=== PATIENT | female | born 1955 | race Caucasian/White ===

== ENCOUNTER 2017-07-20 10:32 | Outpatient (CLI) | payer BC ==
--- NOTE | 2017-07-20 13:48 | MRI ---
MRI LUMBAR SPINE NONCONTRAST: DATE: 07/20/17 HISTORY: 62-year-old female with M54.41 acute right-sided low back pain with right sciatica. COMPARISON: No prior lumbar spine MRIs or CTs. FINDINGS: For the purposes of this report, the last lumbar-type vertebra will be designated as L5, and the leve l with bilateral hypoplastic ribs will be designated as T12. At the left posterolateral upper-mid pole cortex, there is a 1.2 x 0.9 cm T2 hyperintense lesion (axi al image 4 of 43, series 6). Otherwise, no major abnormality of the retroperitoneal or perivertebral spaces. The vertebral body heights are maintained. No major bone marrow signal abnormality. T12-L1: Disc space maintained. Tiny right paracentral, shallow disc protrusion. No central stenosis and no ne ural foraminal stenosis. Conus medullaris terminates at this level. L1-2: Moderate disc space narrowing. Modic Type II end plate marrow changes. Slight degenerative retrolisth esis of L1 on L2. Mild diffuse disc bulge. No central stenosis, and no high grade neural foraminal st enosis. L2-3: Mild to moderate disc space narrowing. Diffuse disc bulge. Left lateral and far lateral component of the disc bulge is asymmetrically larger than the right. Minimal left neural foraminal stenosis. No si gnificant right neural foraminal stenosis. No central stenosis. There are mild to moderate degenerati ve facet changes on the right, and moderate degenerative facet changes on the left. L3-4: Mild to moderate disc space narrowing. Diffuse disc bulge, mild to moderate ligamentum flavum thicken ing, and mild bilateral degenerative facet hypertrophy, all together result in a mild to moderate deg ree of central spinal canal stenosis, and moderate degree of thecal sac stenosis when the posterior e pidural fat pad is taken into consideration. In addition to the diffuse disc bulge, there is a modera te sized central, right paracentral, and right lateral disc extrusion with inferior migration of the extruded disc material down to the pedicle level of L4, posteriorly displacing the right L4 nerve jeff t against the right facet/ligamentum flavum complex. There is moderate bilateral neural foraminal julia nosis. L4-5: Disc space maintained. Minimal disc bulge. Mild right neural foraminal stenosis. Mild to moderate lef t neural foraminal stenosis. Moderately thickened ligamentum flavum. Moderate to severe bilateral deg enerative facet changes. All of these factors result in moderate central spinal canal stenosis. L5-S1: Disc space maintained. No central or neural foraminal stenosis. Moderate bilateral degenerative facet changes, right greater than left. Tiny central disc protrusion. IMPRESSION: 1. Right paracentral extruded disc herniation at L3-4 with inferior migration of extruded disc mater ial, impinging on the right L4 nerve root. 2. Moderate central spinal canal stenosis at L3-4 and L4-5. 3. Lumbar spondylosis, consisting of facet osteoarthrosis (worst at L4-5) and degenerative disc dise ase at L1-2, L2-3, and L3-4. 4. A 1.2 cm T2 hyperintense left renal posterior cortical lesion. Recommend renal ultrasound to dist inguish benign cyst from neoplasm. DIMITRY Chau POS: [facility]
== END 2017-07-20 10:33 | disposition home or self-care (01) ==
LOC: MRI 10:32
PROVIDERS: ATTEND Anesthesiology Pain Medicine
DX: M54.41 Lumbago with sciatica, right side (principal); M47.896 Other spondylosis, lumbar region; M48.061 Spinal stenosis, lumbar region without neurogenic claudication; M51.26 Other intervertebral disc displacement, lumbar region
CPT/HCPCS: 72148

== ENCOUNTER 2017-09-29 10:35 | Day surgery (SDC) | payer BC ==
[2017-09-28 13:46] VITALS: BMI 36.5
--- NOTE | 2017-09-29 12:28 | RAD ---
4 VIEWS LUMBAR SPINE: Date: 09/29/17 HISTORY: Preoperative exam. FINDINGS: Calcification of the T12-L1 disc space. Mild loss of disc space height at L1-L2 and L2-L3. There are five lumbar-type vertebral bodies. Degenerative changes in the posterior elements at L5-S1. In the ne utral position, there is 2.5 mm retrolisthesis of L2 upon L3 and 3.9 mm retrolisthesis of L3 upon L4. On flexion, there is 3.2 mm retrolisthesis of L2 upon L3 and 2.8 mm retrolisthesis of L3 upon L4. Up on extension, there is 3.3 mm retrolisthesis of L2 upon L3 and 4.4 mm retrolisthesis of L3 upon L4. IMPRESSION: Degenerative changes of the lumbar spine as above. Spondylolisthesis as above. POS: [facility]
--- NOTE | 2017-09-29 15:29 | MRI ---
MRI THORACIC SPINE WITHOUT CONTRAST: Date: 09/29/17 HISTORY: Patient fell a year ago. Pain. Surgery. COMPARISON: None. TECHNIQUE: Thoracic spine MRI is performed without intravenous Gadolinium administration. Multisequential, multi planar imaging is performed. FINDINGS: Appropriate T1 marrow signal intensity of the thoracic vertebra. Thoracic spine vertebral body height is maintained. No fracture. No significant STIR hyperintensity to suggest edema or ligamentous injur y. The visualized mediastinal structures are unremarkable. There appear to be chronic changes in the dep endent portion of both lungs. Better interrogation with chest CT is recommended. The thoracic cord has an overall normal size and signal intensity. No evidence of cord expansion. No evidence of cord malacia. Conus medullaris terminates at the mid T12 level. T1-T2: Small left paracentral disc. No high grade central canal stenosis. T2-T3: No significant central canal stenosis. T3-T4: Central/right paracentral disc bulge. Mild flattening of right hemicord. Mild central canal stenosis. T4-T5 through T7-T8: No significant central canal stenosis. T8-T9: Central/left paracentral disc bulge. Mild central canal stenosis. Mild deformity of the left hemicord . T9-T10: Broad based disc bulge with moderate central canal stenosis. T10-T11 and T11-T12: No significant central canal stenosis. No significant posterior disc abnormality. IMPRESSION: 1. Degenerative changes of the thoracic spine as above. 2. Presumed chronic change in the lung parenchyma. Better interrogation with CT. 3. No evidence of significant thoracic spine fracture. CODE T. POS: [facility]
--- NOTE | 2017-09-29 15:40 | MRI ---
MRI CERVICAL SPINE WITHOUT CONTRAST: Technique: Multiplanar, multisequence MRI images were obtained of the cervical spine. History: Cervical pain. FINDINGS: The cervical vertebrae maintain height and alignment. No vertebral body edema noted. Moderate degener ative changes are noted with anterior osteophytes prominent at C5 and C6. Mild loss of disc space not ed at all levels of the cervical spine. There is a posterior bridging osteophyte at C2-3, best appreciated on T1 images. This impinges on the anterior cord. C3-4: Posterior disc bulge and spondolytic change is present, slightly more prominent paracentrally t o the right. This effaces the anterior subarachnoid space but does not abutt the cord. There is mild right neural foraminal narrowing due to this disc osteophyte complex. C4-5: Minimal disc bulge and spondylosis. Anterior subarachnoid space is preserved. Foramina mildly n arrowed due to uncinate hypertrophy. C5-6: Mild disc bulge and spondylosis present. This mildly effaces the anterior subarachnoid space bu t does not impinge on the cord. There is mild left foraminal narrowing due to facet and uncinate hype rtrophy. C6-7: Mild disc bulge and spondylosis. Anterior subarachnoid space is preserved. No significant amy inal narrowing. C7-T1: There is a posterior disc bulge which flattens the thecal sac and mildly effaces the anterior subarachnoid space. No cord impingement. No evidence of foraminal encroachment or narrowing. Cord signal is normal. IMPRESSION: 1. There is a posterior bridging osteophyte at C2-3 which impinges on and mildly flattens the anterio r cord. 2. There are degenerative changes throughout the cervical spine with mild disc bulge and spondolytic changes at several other levels as described above. POS: [facility]
== END 2017-09-29 15:25 | disposition home or self-care (01) ==
LOC: SDC/OP 10:35 → EDSTATUS 12:00 → SDC/OP 15:25
PROVIDERS: ATTEND Neurological Surgery
DX: M48.04 Spinal stenosis, thoracic region (principal); M51.34 Other intervertebral disc degeneration, thoracic region; M50.322 Other cervical disc degeneration at C5-C6 level; M51.26 Other intervertebral disc displacement, lumbar region; M54.17 Radiculopathy, lumbosacral region; F41.9 Anxiety disorder, unspecified; Z88.5 Allergy status to narcotic agent
CPT/HCPCS: 72120; 72141; 72146

== ENCOUNTER 2018-02-09 08:58 | Outpatient (CLI) | payer BC ==
[2018-02-09 10:37] LABS: Hemoglobin 14.5 g/dL (12.0-16.0); Mean Corpuscular HGB CONC 35.5 g/dL (32.0-36.0); Mean Corpuscular Hemoglobin 29.5 pg (27.0-31.0); Mean Corpuscular Volume 82.9 fL (78.0-98.0); Mean Platelet Volume 7.5 fL (7.4-10.4); Platelet Count 159 thou/uL (130-400); RBC Distribution Width 12.2 % (11.5-14.5); Red Blood Cell (RBC) Count 4.93 mill/uL (4.20-5.40); White Blood Cell (WBC) Count 5.1 thou/uL (4.8-10.8)
[2018-02-09 10:44] LABS: Prothrombin Time 13.4 SEC (12.0-14.7)
[2018-02-09 10:45] LABS: PTT 29.1 SEC (22.9-36.1)
== END 2018-02-09 08:59 | disposition home or self-care (01) ==
LOC: LABBT 08:58
PROVIDERS: ATTEND Neurological Surgery
DX: Z01.812 Encounter for preprocedural laboratory examination (principal); M51.26 Other intervertebral disc displacement, lumbar region; M48.061 Spinal stenosis, lumbar region without neurogenic claudication
CPT/HCPCS: 85027; 85610; 85730

== ENCOUNTER 2018-02-12 05:31 | Day surgery (SDC) | payer BC ==
--- NOTE | 2018-02-08 15:28 | HP ---
CHIEF COMPLAINT: Back pain. HISTORY OF PRESENT ILLNESS: Ms. Villa is a 62-year-old female that presents with low back pain and ri ght L4 radiculopathy. She will intermittently have severe pain in the left L5 dermatome as well. Wiliam boyle has been having this pain since 10/2016 and has had several injections from Dr. Guerrero. It wa s a L4-5 transforaminal epidural steroid injections that she received from him lasted until June. Three weeks ago she began to have severe pain in the low back and the right leg again. She notes th at she has been having a few occasions where she stands up and she has severe pain shooting down both legs and she immediately loses bladder control. She is still able to urinate normally on a daily ba sis, but this has happened a few times. She has no weakness on exam. She denies any bowel incontine nce. REVIEW OF SYSTEMS: A 10-point review of systems has been completed and is otherwise negative than st ated above in the HPI. PAST MEDICAL HISTORY: Anxiety and L4-5 right disk protrusion. PAST SURGICAL HISTORY: x2 and a fractured leg. HOSPITALIZATIONS: Small bleed of her brain. FAMILY HISTORY: Father is alive, diagnosed with hypertension and cancer. Mother is . Sibli ngs are alive. SOCIAL HISTORY: The patient is a nonsmoker. She drinks alcohol occasionally and does not use any ot her illicit drugs. 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 MEDICATIONS: Estring, Valium as needed, Zanaflex, multivitamin, calcium. ALLERGIES: MORPHINE. PHYSICAL EXAMINATION HEENT: Ear, nose, throat, mouth, head, normocephalic, atraumatic. Hearing is intact. Moist mucous membranes. NECK: Trachea is midline. No masses are noted. EYES: Pupils are equal, round, and reactive to light. Extraocular movements are intact. Sclerae is not injected, nonicteric. PSYCHIATRIC: Normal mood and affect. CARDIOVASCULAR/PULMONARY: No cyanosis or clubbing noted, intact pedal pulses, regular rate and rhyth m. Normal work of breathing on room air. MUSCULOSKELETAL: Lower extremities, 5/5 strength in bilateral iliopsoas, quadriceps, hamstrings, rig ht tibialis anterior ]and extensor hallux longus. Sensory defects in the right L4 and intermittently in the left L5 dermatome. Tender to palpate on the midline lumbar spine. NEUROLOGIC: The patient is awake, alert. Cranial nerves II-XII are grossly intact. Speech is fluen t. Answers questions appropriately. Normal gait and station. ASSESSMENT: Acute bilateral low back pain and radiculopathy in the lumbosacral region. PLAN: Acute bilateral back pain. Dr. Yee has offered an L4-L5 laminectomy and microdiskectomy . We have discussed the risks, benefits, and possible complications of surgery. The risks discussed included, but were not limited to bleeding, infection, CSF leak, nerve damage, weakness, incontinenc e, cauda equina injury, arachnoiditis, paralysis, ventilator dependence, wheelchair dependence, loss of vision, cardiopulmonary complications of anesthesia or . cultural historian complications discussed i ncluded, but were not limited to degradation of surrounding disks and the need for further surgery. The patient states her understanding of the risks and is willing to move forward with surgery.
[2018-02-09 09:24] VITALS: BMI 36.5
[2018-02-12] MEDS ORDERED: CEFAZOLIN/Water 2 GM/20 ML SYRINGE ONE ×2 (06:43→14:00)
[2018-02-12] MEDS ORDERED: Fentanyl 250 MCG/5 ML VIAL ONE (06:44)
[2018-02-12] MEDS ORDERED: Sodium Chloride 0.9% 10 ML ONE (06:52)
[2018-02-12] MEDS ORDERED: Thrombin 5000 UNITS/5 ML VIAL ONE (06:52)
[2018-02-12] MEDS ORDERED: Bacitracin Zinc Ointment 30 gm TUBE ONE (06:52)
[2018-02-12] MEDS ORDERED: Bupivacaine HCl 0.5%/Epinephrine 1:200,000/PF 30 ml Vial ONE (06:52)
[2018-02-12] MEDS ORDERED: Fentanyl 100 MCG/2 ML VIAL ONE ×2 (10:21→10:42)
--- NOTE | 2018-02-12 10:33 | OP ---
DATE OF SURGERY: 02/12/2018 SURGEON: Adrianne Yee M.D. [employer] OPERATOR: Nupur Mclean PA-C. PREOPERATIVE INDICATION: Treat pain, prevent neurological deterioration. PREOPERATIVE DIAGNOSES: Intervertebral disk disease, causing lateral recess stenosis and radiculopat hy on the right at L3-4 and on the left at L4-L5. POSTOPERATIVE DIAGNOSES: Intervertebral disk disease, causing lateral recess stenosis and radiculopa thy on the right at L3-4 and on the left at L4-L5. OPERATIVE PROCEDURE: Partial hemilaminectomy, medial facetectomy, foraminotomy right L3-L4 and left L4-5, microdiskectomy right L3-L4, operating microscope. PREOPERATIVE MEDICATION: Ancef 2 grams IV. DRAIN NUMBER: Zero. DRAIN TYPE: None. OPERATIVE DICTATION: The patient was brought to the operating room. General endotracheal anesthesia was induced. The patient was positioned prone on the operating table with her chest and hips suppor melissa by gel-filled chest rolls and a lateral fluoro radiograph was used to plan our incision. The lum bar skin was sterilely prepped and draped, and we opened with a 10-blade knife. We controlled our bl eeding with bipolar and monopolar cautery. We used monopolar cautery to dissect through subcutaneous tissues to the thoracodorsal fascia. We incised the fascia in the midline and reflected the paraspi nal muscles off the spinous process and lamina of L3, L4, and L5. A self-retaining retractor was rachael dian and a lateral fluoro radiograph confirmed the levels, upon which we were operating. We then used Steely and Kerrison rongeurs to fashion a partial hemilaminectomy and medial facetectomy at L3-4 and the right and L4-5 on the left. The operating microscope was brought into the field. Under microscopic magnification and using microsurgical techniques, we removed the yellow ligament, s tarting at L3-4 on the right. We identified the common thecal sac and the exiting L4 nerve root. We gently retracted these medially and found a disk protrusion in the ventral epidural space. We contr olled veins with gentle bipolar cautery and incised the protruding disk. We removed loose fragments of disk from the ventral epidural space. We then reached into the interspace through the hole in the annulus to remove loose fragments from the interspace until all of the remaining disk was firmly adh erent to the endplates. This provided excellent decompression of the L4 nerve root. We performed fo raminotomy over the exiting nerve root. We irrigated copiously with bacitracin irrigation. We turne d our attention to the left L4-5. In a similar fashion and continuing under the operating microscope , we removed yellow ligament in a piecemeal fashion. We identified the thecal sac and the exiting L5 nerve root. Here, there was no herniated portion of the disk, but rather a disk osteophyte complex. We decompressed the lateral recess by performing a medial facetectomy and performed a foraminotomy over the exiting L5 nerve root. A Wolfe ball probe could pass through the lateral recess and out th e foramen without impingement. With our decompression secured, we waxed the bone edges. We controll ed ventral epidural bleeding with gentle bipolar cautery. We irrigated the wound with bacitracin irr igation. We infused local anesthetic in the paraspinal muscles. We removed our retractors and close d our incision in anatomic layers. We applied a sterile dressing. This was a clean case and no cont amination.
[2018-02-12] MEDS ORDERED: HYDROmorphone 2 MG/ML VIAL ONE (11:05)
[2018-02-12] MEDS ORDERED: Promethazine HCl 25 MG/ML VIAL ONE (11:14)
[2018-02-12] MEDS ORDERED: Acetaminophen/Codeine 30-300mg Tablet ONE (13:45)
[2018-02-12] MEDS ORDERED: Ondansetron ODT 4 MG TAB ONE (14:38)
[2018-02-12] MEDS ORDERED: Lidocaine 1% PF 5 ML VIAL ONE (14:43)
[2018-02-12] MEDS ORDERED: Dexamethasone 20 MG/5 ML VIAL ONE (14:43)
[2018-02-12] MEDS ORDERED: ePHEDrine/0.9% NaCl/PF SYRINGE 50 mg/10 ml ONE (14:43)
[2018-02-12] MEDS ORDERED: PROPOFOL 200 MG/20 ML VIAL ONE (14:43)
[2018-02-12] MEDS ORDERED: PHENYLEPHRINE-NS 100 MCG/ML 10 ML SYRINGE ONE (14:43)
[2018-02-12] MEDS ORDERED: Ondansetron HCl/PF 4 MG/2 ML Vial ONE (14:43)
== END 2018-02-12 15:08 | disposition home or self-care (01) ==
LOC: SDC 05:31
PROVIDERS: ATTEND Neurological Surgery
PROC: 01NB0ZZ Release Lumbar Nerve, Open Approach (ICD-10-PCS; principal; 2018-02-12)
DX: M51.16 Intervertebral disc disorders with radiculopathy, lumbar region (principal); M48.061 Spinal stenosis, lumbar region without neurogenic claudication; F41.9 Anxiety disorder, unspecified; Z79.899 Other long term (current) drug therapy; Z88.5 Allergy status to narcotic agent
CPT/HCPCS: 76001; 96374; 96375; A4216; J0670; J1100; J1170; J2001; J2405; J2550; J2704; J3010; J3370; J3490; Q0162

== ENCOUNTER 2018-07-13 09:18 | Outpatient (CLI) | payer BC ==
--- NOTE | 2018-07-13 10:44 | RAD ---
2 VIEW CHEST: Date: 07/13/18 COMPARISON: 10/06/12. INDICATION: Chronic cough. FINDINGS: Lungs are clear. There is no effusion or pneumothorax. Cardiac silhouette is borderline in size. Ther e is mild scattered osseous degenerative change. Fragmentation at the lateral right clavicle is prese nt. IMPRESSION: 1. No focal consolidation. 2. Fragmentation at the lateral right clavicle. Consider dedicated radiographic views of the right c lavicle/shoulder for further assessment. CODE T. POS: [facility]
== END 2018-07-13 09:19 | disposition home or self-care (01) ==
LOC: BICRAD 09:18
PROVIDERS: ATTEND Obstetrics & Gynecology
DX: R05 Cough (principal)
CPT/HCPCS: 71046

== ENCOUNTER 2018-07-19 16:01 | Emergency (ER) | payer BC ==
[2018-07-19] MEDS ORDERED: ISOVUE-370 76%-LOCM 1 ML ONE (16:57)
[2018-07-19 17:11] LABS: Hemoglobin 13.3 g/dL (12.0-16.0); Mean Corpuscular HGB CONC 31.9 g/dL (32.0-36.0); Mean Corpuscular Hemoglobin 26.7 pg (27.0-31.0); Mean Corpuscular Volume 83.5 fL (78.0-98.0); Platelet Count 121 thou/uL (130-400); RBC Distribution Width 13.4 % (11.5-14.5); Red Blood Cell (RBC) Count 4.98 mill/uL (4.20-5.40); White Blood Cell (WBC) Count 5.8 thou/uL (4.8-10.8)
--- NOTE | 2018-07-19 17:17 | RAD ---
CHEST TWO VIEWS: 07/19/2018 HISTORY: Cough. COMPARISON: 07/13/2018 FINDINGS: Heart and mediastinal contours are stable. No pneumothorax or pleural fluid is seen. There is no fo reyna consolidation or alveolar edema. There is an old fracture of the distal right clavicle. No acut e findings are seen. IMPRESSION: No acute findings. POS: [facility]
[2018-07-19 17:35] LABS: ALT (SGPT) 30 U/L (8-55); AST (SGOT) 53 U/L (5-34); Albumin 3.6 g/dL (3.4-4.8); Alkaline Phosphatase 102 U/L (40-150); Anion Gap 13 mmol/L (10-20); BUN (Urea Nitrogen) 12 mg/dL (9.8-20.1); Bilirubin, Total 0.6 mg/dL (0.2-1.2); Calc. Creatinine Clearance 0 mL/min (70-130); Calcium 9.1 mg/dL (7.8-10.44); Carbon Dioxide 27 mmol/L (23-31); Chloride 104 mmol/L (98-107); Estimated GFR-MDRD 58; Globulin 2.8 g/dL (2.4-3.5); Glucose 92 mg/dL (80-115); Potassium 4.5 mmol/L (3.5-5.1); Protein, Total 6.4 g/dL (6.0-8.3); Sodium 139 mmol/L (136-145)
[2018-07-19 17:37] LABS: Band 7 % (5-11); Lymphocytes 40 % (21-51); MDiff Complete? YES; Monocytes 3 % (0-10); Neutrophil 46 % (42-75); Platelet Morphology Comment Appears Decreased; Reactive Lymphocytes 4 % (0-10)
[2018-07-19 17:51] LABS: Bilirubin Negative (Negative); Blood, Urine Negative (Negative); Clarity CLEAR (Clear); Glucose, Urine (Dipstick) Negative (Negative); Leukocyte Negative (Negative); Nitrite Negative (Negative); Protein, Urine (Dipstick) Negative (Neg-Trace); Specific Gravity, Urine 1.014 (1.002-1.036); pH, Urine 5.5 (5.0-9.0)
--- NOTE | 2018-07-19 19:58 | CT ---
CT HEAD WITHOUT CONTRAST: 07/19/2018 HISTORY: Two weeks history of fever. COMPARISON: 06/15/2014 TECHNIQUE: Axial CT imaging at 5 mm intervals, from the vertex through the skull base, without contrast. FINDINGS: Partial opacification of the mastoid air cells noted on the right. Imaged paranasal sinuses and mast oid air cells otherwise unremarkable. No intracranial hemorrhage, midline shift, mass effect, or sophia tricular enlargement. IMPRESSION: Partial opacification of right mastoid air cells. No acute intracranial abnormality. POS: [facility]
[2018-07-19 20:06] LABS: CK (CPK) 52 U/L (29-168); LDH 332 U/L (125-220); Lipase 50 U/L (8-78)
--- NOTE | 2018-07-19 20:12 | CT ---
CT ANGIOGRAM CHEST: 07/19/2018 HISTORY: Fever for two weeks. TECHNIQUE: Axial CT imaging obtained at 2.5 mm intervals, from the thoracic inlet through the upper abdomen, wit h IV contrast, using CT angiogram protocol. Coronal and sagittal 3D reformatted imaging obtained. FINDINGS: Secondary to timing of the contrast bolus, there is poor opacification of the pulmonary arterial vasc ulature. This markedly limits assessment for pulmonary embolism. The imaged upper abdomen demonstrates nonspecific splenomegaly, with the spleen measuring 16.1 x 10.8 cm. No pleural, pericardial, or mediastinal fluid. No lymphadenopathy noted in the chest. There is a tiny nodule at the anterior aspect of the right middle lobe on image #[id number], of doubtful clin ical significance. There is mild ground glass opacity noted in the bilateral lower lobes, left great er than right, which may signify mild, nonspecific alveolitis. No focal consolidation. Review of the osseous structures demonstrates no worrisome lytic or blastic bone lesion. IMPRESSION: 1. Nondiagnostic examination for pulmonary embolism secondary to poor contrast opacification. 2. Mild ground glass opacity within the bilateral lung bases, as detailed above. 3. Nonspecific splenomegaly. POS: [facility]
== END 2018-07-19 21:04 | disposition home or self-care (01) ==
LOC: ERS 16:01
DX: H70.91 Unspecified mastoiditis, right ear (principal); M27.3 Alveolitis of jaws; R16.1 Splenomegaly, not elsewhere classified
CPT/HCPCS: 36415; 70450; 71046; 71275; 80053; 81003; 82550; 83605; 83615; 83690; 83880; 84443; 84484; 85025; 85652; 86140; 87040; 87086; 93005; 96360

== ENCOUNTER 2018-07-27 06:45 | Outpatient (CLI) | payer BC ==
--- NOTE | 2018-07-27 09:07 | ULT ---
ABDOMINAL ULTRASOUND: History: Abdominal pain, fever of unknown origin x one month. FINDINGS: Real-time imaging of the upper abdomen demonstrates a normal appearing gallbladder. The common duct i s 3 mm. Technologist reports a negative ultrasound Wolfe's sign. The liver is of increased echogenic ity and measures 20.7 cm in length. The spleen is enlarged at approximately 15.9 cm. The pancreas was fairly well imaged and unremarkable. Right and left kidneys are normal in size and n ot obstructed. IMPRESSION: Mild hepatosplenomegaly with suggestion of some fatty change of the liver. POS: [facility]
== END 2018-07-27 06:46 | disposition home or self-care (01) ==
LOC: BICULT 06:45
PROVIDERS: ATTEND Internal Medicine Hematology & Oncology
DX: R16.2 Hepatomegaly with splenomegaly, not elsewhere classified (principal)
CPT/HCPCS: 76700

== ENCOUNTER 2019-11-09 10:02 | Outpatient (CLI) | payer BC ==
--- NOTE | 2019-11-09 10:55 | RAD ---
EXAM: XR Lumbar Spine Min 4 View PROVIDED CLINICAL HISTORY: Lumbar radiculopathy COMPARISON: 09/29/2017 FINDINGS: 5 nonrib-bearing lumbar-type vertebral bodies are seen. Scattered osteophytes are seen in the lumbar spine. The vertebral body heights are within normal limits. There is trace retrolisthesis of L3 on L4 similar to study in 2018. There is also trace anterolisthesis of L4 and L5. No abnormal translatio nal motion is seen between the flexion and extension views. Loss of intervertebral disc height at the L3-4 level is present. Mild endplate degenerative changes are noted. The vertebral body heights a re within normal limits, and no fracture is seen. IMPRESSION: Mild degenerative changes with trace grade 1 anterolisthesis of L4 on L5 and trace retrolisthesis of L3 on L4.
== END 2019-11-09 10:03 | disposition home or self-care (01) ==
LOC: TBSIIMAG 10:02
PROVIDERS: ATTEND Neurological Surgery
DX: M47.26 Other spondylosis with radiculopathy, lumbar region (principal); M43.16 Spondylolisthesis, lumbar region; M48.061 Spinal stenosis, lumbar region without neurogenic claudication; E55.9 Vitamin D deficiency, unspecified; Z00.00 Encounter for general adult medical examination without abnormal findings
CPT/HCPCS: 36415; 72110; 80053; 80061; 81001; 82306; 85025

== ENCOUNTER 2019-12-14 12:38 | Outpatient (CLI) | payer BC ==
--- NOTE | 2019-12-14 13:43 | MMO ---
Bilateral MAMMO Bilat Screen [facility]. CLINICAL HISTORY: Patient is 64 years old and is seen for screening. The patient has no family history of breast cancer. The patient has no personal history of cancer. The patient has a history of left Excisional Biopsy in 1991 - benign. VIEWS: The views performed were: bilateral craniocaudal with tomosynthesis and bilateral mediolateral oblique with tomosynthesis. FILMS COMPARED: The present examination has been compared to prior imaging studies performed at [facility] on 04/11/2011, 04/12/2014, 07/04/2015 and 07/18/2016. This study has been interpreted with the assistance of computer-aided detection. MAMMOGRAM FINDINGS: There are scattered fibroglandular densities. Benign calcifications are noted bilaterally. There are no suspicious masses, suspicious calcifications, or new areas of architectural distortion. IMPRESSION: THERE IS NO MAMMOGRAPHIC EVIDENCE OF MALIGNANCY. A ROUTINE FOLLOW-UP MAMMOGRAM IN 1 YEAR IS RECOMMENDED. THE RESULTS OF THIS EXAM WERE SENT TO THE PATIENT. ACR BI-RADS Category 2 - Benign finding MAMMOGRAPHY NOTE: 1. A negative mammogram report should not delay a biopsy if a dominant of clinically suspicious mass is present. 2. Approximately 10% to 15% of breast cancers are not detected by mammography. 3. Adenosis and dense breasts may obscure an underlying neoplasm. Reported by: DASIA HERNANDEZ MD Electonically Signed: [id number]
== END 2019-12-14 12:39 | disposition home or self-care (01) ==
LOC: BICMAMMO 12:38
PROVIDERS: ATTEND Family Medicine
DX: Z12.31 Encounter for screening mammogram for malignant neoplasm of breast (principal); Z91.89 Other specified personal risk factors, not elsewhere classified
CPT/HCPCS: 77063; 77067

== ENCOUNTER 2020-08-20 10:48 | Day surgery (SDC) | payer BC ==
[2020-08-17 10:55] VITALS: BMI 34.0
[~2020-08-20 10:48] MED LIST: Lidocaine 1% PF 5 ML VIAL ONE; PROPOFOL 200 MG/20 ML VIAL ONE
[2020-08-20 12:27] LABS: SARS-CoV-2 NAA Rapid Test Not Detected (NotDetected)
[2020-08-20] MEDS ORDERED: Midazolam HCl 2 mg/2 ml Vial ONE (14:51)
--- NOTE | 2020-08-20 15:46 | MRI ---
MRI Lumbar Spine WO Con History: Pain Comparison: Lumbar spine radiographs October 2019. Lumbar spine MRI 2018 Findings: T2 hyperintense focus interpolar left kidney. No hydronephrosis. Aortic contour is nonaneur ysmal. No retroperitoneal periaortic adenopathy. Likely post procedural scarring at L4/L5. Possible right hemilaminectomy changes at L3 and L4. Conus medullaris terminates near the superior L1 endplate. Levels are as follows: L1/L2: Mild disc desiccation and height loss, greatest anteriorly. 1 mm which listhesis. Moderate dis c osteophyte complex. Minimal ventral CSF space effacement with the spinal canal measuring 11 mm. Mild left neural foraminal narrowing. L2/L3: Mild disc desiccation and height loss. Small circumferential disc osteophyte complex. Low-grad e Modic type II endplate changes. Superimposed left lateral recess and subforaminal disc protrusion. Moderate to severe left and mild right neural foraminal narrowing with abutment of the le ft exiting L2 and traversing L3 nerve roots. Severe hypertrophic facet arthrosis on the left and moderate on the right. Moderate ligament of flavum hypertrophy. No significant spinal canal narrowing . L3/L4: Moderate disc desiccation and height loss. Moderate circumferential disc osteophyte complex wi th low-grade Modic type II endplate changes. Moderate to severe left and moderate right neural foraminal narrowing with abutment of the left exiting L3 and traversing L4 nerve roots. No significan t spinal canal narrowing. Minimal ventral CSF space effacement. L4/L5: Mild disc desiccation. Moderate facet joint effusions. Subcortical cystic change of the right L4 lamina, new. Severe hypertrophic facet arthrosis. Posterior paralaminal scar. Moderate left and mild right neural foraminal narrowing. No significant spinal canal narrowing. L5/S1: Minimal disc desiccation. Minimal disc bulge. Severe facet arthrosis. Stress changes of the bi lateral pedicles. No significant neural foraminal or spinal canal narrowing. Impression: 1. Multilevel spondylosis with relatively high-grade left-sided neural foraminal narrowing and nerve root abutment at L2/L3 and L3/L4. 2. Stress changes of the bilateral L5 pedicles. 3. Progressive multilevel severe facet arthrosis.
== END 2020-08-20 16:51 | disposition home or self-care (01) ==
LOC: SDC/OP 10:48
PROVIDERS: ATTEND Anesthesiology Pain Medicine
DX: M48.062 Spinal stenosis, lumbar region with neurogenic claudication (principal); M51.16 Intervertebral disc disorders with radiculopathy, lumbar region; M43.16 Spondylolisthesis, lumbar region; G47.33 Obstructive sleep apnea (adult) (pediatric); E66.9 Obesity, unspecified; F41.9 Anxiety disorder, unspecified; Z68.34 Body mass index [BMI] 34.0-34.9, adult; Z79.899 Other long term (current) drug therapy; Z88.5 Allergy status to narcotic agent; Z20.822 Contact with and (suspected) exposure to COVID-19
CPT/HCPCS: 72148; J2250; J2704; U0002

== ENCOUNTER 2020-12-07 10:24 | Outpatient (CLI) | payer BC | END 2020-12-07 10:25 | disposition home or self-care (01) | LOC: BICRAD 10:24 | PROVIDERS: ATTEND Anesthesiology Pain Medicine | DX: M47.816 Spondylosis without myelopathy or radiculopathy, lumbar region (principal) | CPT/HCPCS: 72110 ==

== ENCOUNTER 2021-04-19 10:15 | Emergency (ER) | payer BC ==
[2021-04-19] MEDS ORDERED: Iopamidol-370 76% 500 ML 1 ML ONE (10:42)
[2021-04-19] MEDS ORDERED: Fentanyl 100 MCG/2 ML VIAL ONE ×2 (12:29→13:20)
[2021-04-19 12:42] LABS: #Monocytes 0.7 thou/uL (0.11-0.59); #Neutrophils 6.5 thou/uL (1.40-6.50); %Basophils 0.2 % (0.0-1.0); %Eosinophils 0.5 % (0.0-10.0); %Lymphocytes 21.9 % (21.0-51.0); %Monocytes 7.1 % (0.0-10.0); %Neutrophils 70.4 % (42.0-75.0); Hemoglobin 14.6 g/dL (12.0-16.0); Mean Corpuscular HGB CONC 34.5 g/dL (32.0-36.0); Mean Corpuscular Hemoglobin 29.5 pg (27.0-31.0); Mean Corpuscular Volume 85.4 fL (78.0-98.0); Mean Platelet Volume 7.9 fL (7.4-10.4); Platelet Count 163 thou/uL (130-400); RBC Distribution Width 11.7 % (11.5-14.5); Red Blood Cell (RBC) Count 4.94 mill/uL (4.20-5.40); White Blood Cell (WBC) Count 9.2 thou/uL (4.8-10.8)
[2021-04-19 13:04] LABS: ALT (SGPT) 15 U/L (8-55); AST (SGOT) 19 U/L (5-34); Albumin 4.4 g/dL (3.4-4.8); Alkaline Phosphatase 73 U/L (40-110); Anion Gap 16 mmol/L (10-20); BUN (Urea Nitrogen) 20 mg/dL (9.8-20.1); Bilirubin, Total 1.4 mg/dL (0.2-1.2); Calc. Creatinine Clearance 0 mL/min (70-130); Calcium 9.9 mg/dL (7.8-10.44); Carbon Dioxide 26 mmol/L (23-31); Chloride 102 mmol/L (98-107); Globulin 3.1 g/dL (2.4-3.5); Glucose 93 mg/dL (80-115); Potassium 4.3 mmol/L (3.5-5.1); Protein, Total 7.5 g/dL (5.8-8.1); Sodium 140 mmol/L (136-145)
[2021-04-19] MEDS ORDERED: Ketorolac Tromethamine 30 MG/ML VIAL ONE ×2 (14:19→17:58)
[2021-04-19 15:56] LABS: Magnesium 1.7 mg/dL (1.6-2.6)
== END 2021-04-19 18:20 ==
LOC: ERS 10:15
DX: M25.562 Pain in left knee (principal); M25.561 Pain in right knee; G89.18 Other acute postprocedural pain; M54.50 Low back pain, unspecified; W18.30XA Fall on same level, unspecified, initial encounter; Y93.01 Activity, walking, marching and hiking; Y92.000 Kitchen of unspecified non-institutional (private) residence as the place of occurrence of the external cause
CPT/HCPCS: 36415; 71045; 74177; 80053; 83735; 84484; 85025; 93005; 96374; 96375; 96376; J1885; J3010; Q9967